=== PATIENT | female | born 1990 | race Caucasian/White ===

== ENCOUNTER 2019-10-22 16:43 | Emergency (ER) | payer OTHER ==
[~2019-10-22] VITALS: Ht 160 cm; Wt 68.0 kg
[2019-10-22] MEDS ORDERED: TYLENOL WITH CO1 TA1 PO (18:52)
[2019-10-22 18:57] VITALS: BP 139/89
== END 2019-10-22 18:58 | disposition home or self-care (01) ==
LOC: M.ERS 16:43
DX: M25.462 Effusion, left knee (principal); Z88.0 Allergy status to penicillin; Z88.6 Allergy status to analgesic agent; Z88.8 Allergy status to other drugs, medicaments and biological substances